=== PATIENT | female | born 1970 | race Caucasian/White ===

== ENCOUNTER 2020-08-07 13:32 | Emergency (ER) | payer BC, OTHER ==
[~2020-08-07 13:32] MED LIST: HYDROCODONE-CHLO5 ML PO; OMNICEF 300 MG300 MG PO; PREDNISONE 50 M50 MG PO; PROVENTIL HFA6.7 GM INH; TESSALON PERLE100 MG PO
== END 2020-08-07 17:21 | disposition home or self-care (01) ==
LOC: ER1 13:32
DX: U07.1 COVID-19 (principal)
CPT/HCPCS: 93005; 94664; 96374; 96375; 99284; J1100; J1885; J2405; J7030; M0239

== ENCOUNTER → 2020-09-30 | Outpatient (CLI) | payer BC, OTHER ==
[~2020-09-30] MED LIST changes: +ARNUITY ELLIP100 MCG INH; +BUTALB-ACETAMI1 EAC1 PO; +CRESTOR20 MG PO; +EFFEXOR XR150 MG PO; +FLONASE 0.05% N16 GM; +GABAPENTIN600 MG PO; +HYDROCODONE-CH473 ML PO; +MYCOSTATIN100000 UTS PO; +PREDNISONE 20 M20 MG PO; +PROAIR HFA8.5 GM INH; +PROPRANOLOL HCL80 MG PO; +PROTONIX 40 MG40 M1 PO; +SINGULAIR10 MG PO; +VITAMIN D21250 MCG PO; +ZOFRAN4 MG PO
== END ==
LOC: HEART 5 09:53
DX: R06.02 Shortness of breath (principal); Z86.16 Personal history of COVID-19
CPT/HCPCS: 94010

== ENCOUNTER → 2020-11-02 | Outpatient (CLI) | payer OTHER | LOC: EROP 17:00 | DX: Z11.52 Encounter for screening for COVID-19 (principal); Z20.822 Contact with and (suspected) exposure to COVID-19 | CPT/HCPCS: 0240U; 87081; 87880 ==

== ENCOUNTER 2020-12-03 15:47 | Observation (INO) | payer BC, OTHER ==
[~2020-12-03] VITALS: Ht 165.1 cm; Wt 63.6 kg
[~2020-12-03 15:47] MED LIST changes: -ARNUITY ELLIP100 MCG INH; -BUTALB-ACETAMI1 EAC1 PO; -CRESTOR20 MG PO; -EFFEXOR XR150 MG PO; -FLONASE 0.05% N16 GM; -GABAPENTIN600 MG PO; -HYDROCODONE-CH473 ML PO; -MYCOSTATIN100000 UTS PO; -PREDNISONE 20 M20 MG PO; -PROAIR HFA8.5 GM INH; -PROPRANOLOL HCL80 MG PO; -PROTONIX 40 MG40 M1 PO; -SINGULAIR10 MG PO; -VITAMIN D21250 MCG PO; -ZOFRAN4 MG PO
[2020-12-03 18:06] LABS: HEMOGLOBIN 12.8 gm/dl (12.3-15.3); RED BLOOD COUNT 4.41 M/UL (4.00-5.10)
[2020-12-03 19:12] LABS: BUN/CREATININE RATIO 10 (0-10)
[2020-12-03] MEDS ORDERED: ARNUITY ELLIP100 MCG INH (23:23)
[2020-12-03] MEDS ORDERED: PROAIR HFA8.5 GM INH (23:25)
[2020-12-03] MEDS ORDERED: MYCOSTATIN100000 UTS PO (23:25)
[2020-12-03] MEDS ORDERED: PREDNISONE 20 M20 MG PO (23:28)
[2020-12-03] MEDS ORDERED: PROPRANOLOL HCL80 MG PO (23:28)
[2020-12-03] MEDS ORDERED: EFFEXOR XR150 MG PO (23:29)
[2020-12-03] MEDS ORDERED: BUTALB-ACETAMI1 EAC1 PO (23:31)
[2020-12-03] MEDS ORDERED: GABAPENTIN600 MG PO (23:32)
[2020-12-03] MEDS ORDERED: CRESTOR20 MG PO (23:33)
[2020-12-03] MEDS ORDERED: FLONASE 0.05% N16 GM (23:33)
[2020-12-03] MEDS ORDERED: VITAMIN D21250 MCG PO (23:36)
[2020-12-03] MEDS ORDERED: ZOFRAN4 MG PO (23:36)
[2020-12-03] MEDS ORDERED: SINGULAIR10 MG PO (23:37)
[2020-12-04 04:44] LABS: HEMOGLOBIN 11.9 gm/dl (12.3-15.3); RED BLOOD COUNT 4.16 M/UL (4.00-5.10)
[2020-12-04 04:58] LABS: BUN/CREATININE RATIO 10 (0-10)
[2020-12-05] MEDS ORDERED: HYDROCODONE-CH473 ML PO ×3 (09:52→15:10)
[2020-12-05] MEDS ORDERED: PROTONIX 40 MG40 M1 PO (09:55)
== END 2020-12-05 19:18 | disposition home or self-care (01) ==
LOC: ER1 15:47 → CDU 20:35 → MED SURG 4 20:35 → CDU 20:35 → MED SURG 4 22:48
PROVIDERS: Physician Assistant Medical; ADMIT Internal Medicine
DX: R07.89 Other chest pain (principal); R05 Cough; R13.10 Dysphagia, unspecified; I10 Essential (primary) hypertension; E78.5 Hyperlipidemia, unspecified; G43.909 Migraine, unspecified, not intractable, without status migrainosus; F32.9 Major depressive disorder, single episode, unspecified; K21.9 Gastro-esophageal reflux disease without esophagitis; Z86.16 Personal history of COVID-19; Z82.49 Family history of ischemic heart disease and other diseases of the circulatory system; Z79.891 Long term (current) use of opiate analgesic; Z79.899 Other long term (current) drug therapy; Z20.822 Contact with and (suspected) exposure to COVID-19
CPT/HCPCS: ECHO; 36415; 71045; 80048; 80053; 80061; 82550; 82553; 83690; 83874; 84439; 84443; 84484; 85025; 86140; 93005; 93306; 94640; 94664; 94760; 96374; 99285; G0378; J2405; J7030; Q9967; U0002

== ENCOUNTER → 2021-01-03 | Outpatient (CLI) | payer BC, OTHER ==
[~2021-01-03] MED LIST changes: +ARNUITY ELLIP100 MCG INH; +BUTALB-ACETAMI1 EAC1 PO; +CRESTOR20 MG PO; +EFFEXOR XR150 MG PO; +FLONASE 0.05% N16 GM; +GABAPENTIN600 MG PO; +HYDROCODONE-CH473 ML PO; +MYCOSTATIN100000 UTS PO; +PREDNISONE 20 M20 MG PO; +PROAIR HFA8.5 GM INH; +PROPRANOLOL HCL80 MG PO; +PROTONIX 40 MG40 M1 PO; +SINGULAIR10 MG PO; +VITAMIN D21250 MCG PO; +ZOFRAN4 MG PO
== END ==
LOC: EXRD 12-28 09:30 → US 09:30
DX: R10.11 Right upper quadrant pain (principal)
CPT/HCPCS: 76705

== ENCOUNTER → 2021-03-24 | Outpatient (CLI) | payer BC, OTHER | LOC: KOH-I 09:44 | DX: M25.571 Pain in right ankle and joints of right foot (principal); M79.671 Pain in right foot | CPT/HCPCS: 73610; 73630 ==

== ENCOUNTER → 2021-03-28 | Outpatient (CLI) | payer BC, OTHER ==
[2021-03-28 16:19] LABS: HEMOGLOBIN 12.5 gm/dl (12.3-15.3); RED BLOOD COUNT 4.65 M/UL (4.00-5.10); WHITE BLOOD COUNT 6.5 K/UL (4.5-11.0)
[2021-03-30 08:14] LABS: COMPLEMENT C3, SERUM 167 mg/dL (82-167); COMPLEMENT C4, SERUM 36 mg/dL (12-38)
[2021-03-30 14:14] LABS: ANTI-DSDNA ANTIBODIES <1 IU/mL (0-9); ANTICHROMATIN ANTIBODIES <0.2 AI (0.0-0.9)
== END ==
LOC: LAB 14:46
PROVIDERS: Podiatrist Foot & Ankle Surgery
DX: L03.119 Cellulitis of unspecified part of limb (principal)
CPT/HCPCS: 36415; 84550; 85027; 85652; 86038; 86140; 86160; 86225

== ENCOUNTER → 2021-04-09 | Outpatient (CLI) | payer BC, OTHER | LOC: MRI 09:28 | DX: M79.671 Pain in right foot (principal) | CPT/HCPCS: 73718 ==

== ENCOUNTER → 2021-04-26 | Outpatient (CLI) | payer BC, OTHER | LOC: RAD 14:51 | DX: J20.9 Acute bronchitis, unspecified (principal); R05.9 Cough, unspecified; R91.8 Other nonspecific abnormal finding of lung field | CPT/HCPCS: 71046 ==

== ENCOUNTER 2021-08-05 15:59 | Emergency (ER) | payer BC, OTHER ==
[2021-08-05 16:58] LABS: HEMOGLOBIN 12.5 gm/dl (12.3-15.3); RED BLOOD COUNT 4.64 M/UL (4.00-5.10); WHITE BLOOD COUNT 5.2 K/UL (4.5-11.0)
[2021-08-05 17:21] LABS: BUN/CREATININE RATIO 10 (0-10)
[2021-08-05 17:37] LABS: BORDETELLA PARAPERTUSSIS Not Detected (Not Detectd); BORDETELLA PERTUSSIS Not Detected (Not Detectd); CHLAMYDIA PNEUMONIAE Not Detected (Not Detectd); CORONAVIRUS HKU1 Not Detected (Not Detectd); CORONAVIRUS NL63 Not Detected (Not Detectd); CORONAVIRUS OC43 Not Detected (Not Detectd); CORONOAVIRUS 229E Not Detected (Not Detectd); HUMAN METAPNEUMOVIRUS Not Detected (Not Detectd); HUMAN RHINOVIRUS/ENTEROVIRUS Not Detected (Not Detectd); INFLUENZA A Not Detected (Not Detectd); INFLUENZA B Not Detected (Not Detectd); MYCOPLASMA PNEUMONIAE Not Detected (Not Detectd); PARAINFLUENZA VIRUS 1 Not Detected (Not Detectd); PARAINFLUENZA VIRUS 2 Not Detected (Not Detectd); PARAINFLUENZA VIRUS 3 Not Detected (Not Detectd); PARAINFLUENZA VIRUS 4 Not Detected (Not Detectd); RESPIRATORY SYNCYTIAL VIRUS Not Detected (Not Detectd)
[2021-08-05 19:45] LABS: SARS-CoV-2 DETECTED (Not Detectd)
== END 2021-08-05 20:25 | disposition home or self-care (01) ==
LOC: ER1 15:59
PROVIDERS: Preventive Medicine Occupational Medicine
DX: U07.1 COVID-19 (principal); I10 Essential (primary) hypertension
CPT/HCPCS: 36600; 71045; 80053; 82550; 82553; 82803; 83605; 83690; 83874; 83880; 84484; 85025; 85652; 86140; 87040; 87633; 94664; 99285

== ENCOUNTER → 2021-09-23 | Outpatient (CLI) | payer BC, OTHER | LOC: LAB 19:04 | DX: R05.9 Cough, unspecified (principal) | CPT/HCPCS: 71046; 85379 ==

== ENCOUNTER 2021-12-04 21:40 | Emergency (ER) | payer BC, OTHER ==
[2021-12-04 22:59] LABS: HEMOGLOBIN 12.6 gm/dl (12.3-15.3); RED BLOOD COUNT 4.63 M/UL (4.00-5.10); WHITE BLOOD COUNT 3.8 K/UL (4.5-11.0)
[2021-12-04 23:22] LABS: BUN/CREATININE RATIO 17 (0-10)
[2021-12-05] MEDS ORDERED: PROVENTIL HFA6.7 GM INH (01:03)
[2021-12-05] MEDS ORDERED: AEROCHAMBER1 EA XX (01:03)
== END 2021-12-05 01:25 | disposition home or self-care (01) ==
LOC: ER1 21:40
PROVIDERS: Family Medicine
DX: R11.2 Nausea with vomiting, unspecified (principal); R19.7 Diarrhea, unspecified; R05.9 Cough, unspecified; E87.6 Hypokalemia; E78.5 Hyperlipidemia, unspecified; J45.909 Unspecified asthma, uncomplicated; I10 Essential (primary) hypertension; Z20.822 Contact with and (suspected) exposure to COVID-19
CPT/HCPCS: 0240U; 71045; 80053; 82550; 82553; 83605; 83690; 83735; 83880; 84484; 85025; 93005; 94664; 94760; 96361; 96374; 99284; J2405

== ENCOUNTER 2022-04-18 12:42 | Emergency (ER) | payer BC, OTHER ==
[~2022-04-18 12:42] MED LIST changes: +AEROCHAMBER1 EA XX
[2022-04-18 13:00] LABS: HEMOGLOBIN 12.4 gm/dl (12.3-15.3); RED BLOOD COUNT 4.62 M/UL (4.00-5.10); WHITE BLOOD COUNT 3.8 K/UL (4.5-11.0)
[2022-04-18 13:30] LABS: BUN/CREATININE RATIO 14 (0-10)
== END 2022-04-18 19:45 | disposition home or self-care (01) ==
LOC: ER1 12:42
PROVIDERS: Family Medicine
DX: R07.9 Chest pain, unspecified (principal); E78.5 Hyperlipidemia, unspecified; I10 Essential (primary) hypertension; Z20.822 Contact with and (suspected) exposure to COVID-19
CPT/HCPCS: 71045; 80053; 82550; 82553; 84484; 85025; 93005; 99285; U0002